=== PATIENT | male | born 1955 | race Caucasian/White ===

== ENCOUNTER 2019-02-14 01:15 | Emergency (ER) | payer MEDICARE, OTHER ==
[2019-02-14] MEDS ORDERED: FENTANYL CITRATE INJ/PF 100 MCG/2 ML AMPUL IV ONE (03:15)
[2019-02-14 04:05] LABS: ABSOLUTE BASOPHILS # (AUTO) 0.1 10^3/uL (0.0-0.2); ABSOLUTE EOSINOPHILS # (AUTO) 0.6 10^3/uL (0.0-0.6); ABSOLUTE LYMPHOCYTES (AUTO) 1.6 10^3/uL (0.5-4.7); ABSOLUTE MONOCYTES (AUTO) 1.6 10^3/uL (0.1-1.4); ABSOLUTE NEUT (AUTO) 11.6 10^3/uL (1.7-8.2); BASOPHILS % (AUTO) 0.3 % (0-2); HEMATOCRIT 49.1 % (37.9-51.0); HEMOGLOBIN 16.5 g/dL (13.5-17.0); LYMPHOCYTES % (AUTO) 10.4 % (13-45); MEAN CORPUSCULAR HEMOGLOBIN 31.2 pg (27.0-33.4); MEAN CORPUSCULAR HGB CONC 33.6 g/dL (32.0-36.0); MEAN CORPUSCULAR VOLUME 93 fl (80-97); MONOCYTES % (AUTO) 10.6 % (3-13); PLATELET COUNT 251 10^3/uL (150-450); RED BLOOD COUNT 5.28 10^6/uL (4.35-5.55); RED CELL DISTRIBUTION WIDTH 13.9 % (11.5-14.0); SEGMENTED NEUTROPHILS % (AUTO) 74.7 % (42-78); TOTAL CELLS COUNTED % (AUTO) 100 %; WHITE BLOOD COUNT 15.5 10^3/uL (4.0-10.5)
--- NOTE | 2019-02-14 04:16 | ER Document Report ---
ED GI/ - General Chief Complaint: Abdominal Pain Stated Complaint: ABDOMINAL PAIN Time Seen by Provider: 02/14/19 03:14 Primary Care Provider: RICHARD AUGUSTIN MD [ACTIVE STAFF] - Follow up as needed Notes: Patient is a 63-year-old male presents to the emergency department for right lower abdominal pain. Patient states a couple months ago he thought he may have pulled a muscle in his right back after playing golf. States he saw his primary care provider and was given Celebrex and Flexeril. States since then inte rmittently he has had right flank, right groin, right lower abdominal pain. States this evening it woke him up. States it was as though someone was squeezing his right lower abdomen. Patient also complains of pain in his right testicle. Patient voices he is very nauseated. Patient's denying any fevers, chest pain, shortness of breath, diarrhea. Patient voices he has no dysuria but has noted a decrease in the flow of his urine. States his primary care provider placed him on Flomax recently. Past medical history: Hypertension, hyperlipidemia Medications: Lisinopril Allergies: Penicillin, Cipro TRAVEL OUTSIDE OF THE [place] IN LAST 30 DAYS: No - Related Data Allergies/Adverse Reactions: ciprofloxacin [From Cipro] Allergy (Severe, Verified 07/24/15 13:17) ciprofloxacin HCl [From Cipro] Allergy (Severe, Verified 07/24/15 13:17) Penicillins Allergy (Severe, Verified 07/24/15 13:17) Past Medical History - General Information source: Patient - Social History Smoking Status: Former Smoker Frequency of alcohol use: Rare Drug Abuse: None Family History: Reviewed & Not Pertinent Patient has suicidal ideation: No Patient has homicidal ideation: No - Past Medical History Cardiac Medical History: Reports: Hx Hypercholesterolemia, Hx Hypertension GI Medical History: Reports: Hx Gastroesophageal Reflux Disease Past Surgical History: Reports: Hx Orthopedic Surgery, Hx Tonsillectomy - Immunizations Hx Diphtheria, Pertussis, Tetanus Vaccination: No Review of Systems - Review of Systems Constitutional: denies: Fever EENT: No symptoms reported Cardiovascular: No symptoms reported Respiratory: No symptoms reported Gastrointestinal: See HPI Genitourinary: See HPI Male Genitourinary: See HPI Musculoskeletal: See HPI Skin: No symptoms reported Hematologic/Lymphatic: No symptoms reported Neurological/Psychological: No symptoms reported Physical Exam - Vital signs Vitals: Temp Pulse Resp BP Pulse Ox 97.6 F 81 16 152/97 H 98 02/14/19 02:36 02/14/19 02:36 02/14/19 02:36 02/14/19 02:36 02/14/19 02:36 - Notes Notes: GENERAL: Alert, interacts well. No acute distress. HEAD: Normocephalic, atraumatic. EYES: Pupils equal, round, and reactive to light. Extraocular movements intact. ENT: Oral mucosa moist, tongue midline. NECK: Full range of motion. Supple. Trachea midline. LUNGS: Clear to auscultation bilaterally, no wheezes, rales, or rhonchi. No respiratory distress. HEART: Regular rate and rhythm. No murmur ABDOMEN: Soft, generalized tenderness noted right lower quadrant, otherwise abdominal exam benign. Non-distended. Bowel sounds present in all 4 quadrants. EXTREMITIES: Moves all 4 extremities spontaneously. No edema, normal radial and dorsalis pedis pulses bilaterally. No cyanosis. BACK: no cervical, thoracic, lumbar midline tenderness. No saddle anesthesia, normal distal neurovascular exam. No CVA tenderness noted bilaterally NEUROLOGICAL: Alert and oriented x3. Normal speech. cranial nerves II through XII grossly intact PSYCH: Normal affect, normal mood. SKIN: Warm, dry, normal turgor. No rashes or lesions noted. Genitalia: Kathia Oliveira RN, pain upon palpation and movement of right testicle, bilateral testicles nonerythematous, nonswollen. No pelvic pain noted bilaterally. Course - Re-evaluation Re-evalutation: 02/14/19 06:11 Laboratory 02/14/19 02/14/19 02/14/19 03:49 03:49 03:49 WBC 15.5 H RBC 5.28 Hgb 16.5 Hct 49.1 MCV 93 MCH 31.2 MCHC 33.6 RDW 13.9 Plt Count 251 Lymph % (Auto) 10.4 L [place] % (Auto) 10.6 Eos % (Auto) 4.0 Baso % (Auto) 0.3 Absolute Neuts (auto) 11.6 H Absolute Lymphs (auto) 1.6 Absolute Monos (auto) 1.6 H Absolute Eos (auto) 0.6 Absolute Basos (auto) 0.1 Seg Neutrophils % 74.7 Sodium 140.6 Potassium 4.2 Chloride 102 Carbon Dioxide 29 Anion Gap 10 BUN 31 H Creatinine 1.03 Est GFR ( Amer) > 60 Est GFR (MDRD) Non-Af > 60 Glucose 97 Calcium 9.6 Total Bilirubin 1.1 Direct Bilirubin 0.1 Neonat Total Bilirubin Not Reportable Neonat Direct Bilirubin Not Reportable Neonat Indirect Bili Not Reportable AST 31 ALT 35 Alkaline Phosphatase 91 Total Protein 7.4 Albumin 4.3 Lipase 79.6 Urine Color YELLOW Urine Appearance CLEAR Urine pH 6.0 Ur Specific [place] 1.027 Urine Protein 30 H Urine Glucose (UA) NEGATIVE Urine Ketones TRACE H Urine Blood NEGATIVE Urine Nitrite NEGATIVE Urine Bilirubin NEGATIVE Urine Urobilinogen NEGATIVE Ur Leukocyte Esterase NEGATIVE Urine WBC (Auto) 2 Urine RBC (Auto) 1 U Hyaline Cast (Auto) 3 Squamous Epi Cells Auto <1 Urine Mucus (Auto) FEW Urine Ascorbic Acid NEGATIVE Abdomen/Pelvis CT 02/14/19 03:14 IMPRESSION: No acute intra-abdominal/pelvic process TECHNICAL DOCUMENTATION: Quality ID # 436: Final reports with documentation of one or more dose reduction techniques (e.g., Automated exposure control, adjustment of the mA and/or kV according to patient size, use of iterative reconstruction technique) copyright 2011 [employer]- All Rights Reserved Scrotum Ultrasound 02/14/19 03:26 IMPRESSION: 1. There is an approximately 0.9 cm circumscribed hypoechoic avascular left extratesticular mass which could represent a spermatocele, adenomatoid tumor or other benign lesion. 2. Small bilateral epididymal head cysts. 3. No evidence of testicular torsion or intratesticular mass lesion. 4. Small bilateral hydroceles, larger on the right. I discussed with patient at length lab results. I have discussed continued fo llow-up with primary care provider for PSA testing. Patient voices understanding. I have discussed treatment for hydroceles and scrotal US, need to f/u with PCP/urology. Patient states the pain is right lower side is more so when he moves at this point time. Patient continues to deny the want for any pain medication. States he will take all medications that he was given for his muscle pull. Discussed potential diagnosis of constipation and use of MiraLAX. At this time will discharge with return precautions and follow-up recommendations. Verbal discharge instructions given a the bedside and opportunity for questions given. Medication warnings reviewed. Patient is in agreement with this plan and has verbalized understanding of return precautions and the need for primary care follow-up in the next 24-72 hours. This medical record was dictated with voice recognizing software. There may be grammatical, syntax errors that are unintended. - Vital Signs Vital signs: Temp Pulse Resp BP Pulse Ox 97.6 F 81 16 152/97 H 98 02/14/19 02:36 02/14/19 02:36 02/14/19 02:36 02/14/19 02:36 02/14/19 02:36 - Laboratory Result Diagrams: 02/14/19 03:49 02/14/19 03:49 Laboratory results interpreted by me: 02/14/19 02/14/19 02/14/19 03:49 03:49 03:49 WBC 15.5 H Lymph % (Auto) 10.4 L Absolute Neuts (auto) 11.6 H Absolute Monos (auto) 1.6 H BUN 31 H Urine Protein 30 H Urine Ketones TRACE H Discharge - Discharge Clinical Impression: Hydrocele Qualifiers: Hydrocele type: unspecified Qualified Code(s): N43.3 - Hydrocele, unspecified Abdominal pain Qualifiers: Abdominal location: right lower quadrant Qualified Code(s): R10.31 - Right lower quadrant pain Constipation Qualifiers: Constipation type: unspecified constipation type Qualified Code(s): K59.00 - Constipation, unspecified Condition: Stable Disposition: HOME, SELF-CARE Instructions: Abdominal Pain ([facility]), Hydrocele ([facility]), Constipation ([facility]) Additional Instructions: As we discussed you have been seen and treated in the emergency department for your right lower abdominal pain, right testicular pain your CT images shows you are constipated. You can take MiraLAX [id number] for constipation. Your ultrasound of your right testicle shows a hydrocele. You should wear supportive undergarments for supportive care. Please take all medications as prescribed. Please follow-up with your primary care provider for prostate testing. Please return to the emergency room for any concerns. Referrals: RICHARD AUGUSTIN MD [ACTIVE STAFF] - Follow up as needed
[2019-02-14 04:19] LABS: ALBUMIN 4.3 g/dL (3.5-5.0); ALKALINE PHOSPHATASE 91 U/L (38-126); ANION GAP 10 (5-19); ASPARTATE AMINO TRANSFERASE 31 U/L (17-59); BILIRUBIN,DIRECT 0.1 mg/dL (0.0-0.4); BILIRUBIN,TOTAL 1.1 mg/dL (0.2-1.3); BLOOD UREA NITROGEN 31 mg/dL (7-20); CALCIUM 9.6 mg/dL (8.4-10.2); CARBON DIOXIDE 29 mmol/L (22-30); CHLORIDE 102 mmol/L (98-107); GLUCOSE 97 mg/dL (75-110); POTASSIUM 4.2 mmol/L (3.6-5.0); TOTAL PROTEIN 7.4 g/dL (6.3-8.2)
[2019-02-14 04:22] LABS: APPEARANCE,URINE CLEAR; BILIRUBIN,URINE NEGATIVE (NEGATIVE); COLOR,URINE YELLOW; GLUCOSE, URINE NEGATIVE (NEGATIVE); KETONES,URINE TRACE mg/dL (NEGATIVE); LEUKOCYTE ESTERASE,URINE NEGATIVE (NEGATIVE); NITRITE,URINE NEGATIVE (NEGATIVE); PROTEIN,URINE 30 mg/dL (NEGATIVE); URINE SPECIFIC GRAVITY 1.027; UROBILINOGEN,URINE NEGATIVE mg/dL (<2.0)
[2019-02-14] MEDS ORDERED: NORMAL SALINE 1000 ML 1,000 ML IV ONE (05:23)
--- NOTE | 2019-02-14 05:34 | RADIOLOGY REPORT (SQ) ---
EXAM: US SCROTUM CLINICAL DATA: 63-year-old male with right testicular pain TECHNICAL DATA: Sagittal and transverse ultrasound imaging and measurement of bilateral testicles with color flow was performed. Comparison: None. FINDINGS: The right testicle measures 4.1 x 3.2 x 1.9 cm and is homogeneous in echogenicity. No focal masses are identified. The right epididymal head measures 1.2 x 1.0 x 0.9 cm. Doppler imaging demonstrates normal flow in the right testicle . There are a couple of small epididymal head cysts measuring approximately 0.3 and 0.4 cm in diameter. There is a small right hydrocele. The left testicle measures 3.7 x 2.9 x 1.9 cm and is homogeneous in echogenicity. The left epididymal head measures 0.9 x 0.8 x 0.8 cm. Doppler imaging demonstrates normal flow in the left testicle. There is an approximately 0.4 cm left epididymal head cyst. Additionally, there is an avascular hypoechoic mass adjacent to the left testicle which measures 0.9 x 0.9 x 0.9 cm. This is nonspecific. This could represent a spermatocele, adenomatoid tumor or other benign lesion. There is a trace left hydrocele. IMPRESSION: 1. There is an approximately 0.9 cm circumscribed hypoechoic avascular left extratesticular mass which could represent a spermatocele, adenomatoid tumor or other benign lesion. 2. Small bilateral epididymal head cysts. 3. No evidence of testicular torsion or intratesticular mass lesion. 4. Small bilateral hydroceles, larger on the right.
--- NOTE | 2019-02-14 05:37 | RADIOLOGY REPORT (SQ) ---
EXAM DESCRIPTION: CT ABDOMEN PELVIS WITH IV CONTRAST COMPLETED DATE/TME: 02/14/2019 03:14 CLINICAL HISTORY: 63 years, Male, RLQ pain. creat 1.03 COMPARISON: 03/19/2017 CT TECHNIQUE: [id number] Images stored on PACS. All CT scanners at this facility use dose modulation, iterative reconstruction, and/or weight based dosing when appropriate to reduce radiation dose to as low as reasonably achievable (ALARA). [facility]: Dose Right [facility]: CareDose [facility]: Dose Right [facility]: Teradose 4D [facility]: [employer] LIMITATIONS: None. FINDINGS: The lung bases are unremarkable. Osseous structures are grossly intact. The liver, spleen, adrenal glands, pancreas, kidneys are unremarkable. The gallbladder is present. No evidence for bowel obstruction. Normal appendix. Moderate stool in the colon. No free air or free fluid. Multiple calcifications of the prostate. Correlate with PSA levels IMPRESSION: No acute intra-abdominal/pelvic process TECHNICAL DOCUMENTATION: Quality ID # [id number]: Final reports with documentation of one or more dose reduction techniques (e.g., Automated exposure control, adjustment of the mA and/or kV according to patient size, use of iterative reconstruction technique) copyright 2010 [employer]- All Rights Reserved
[2019-02-14 06:22] VITALS: BP 143/84
== END 2019-02-14 06:31 | disposition home or self-care (01) ==
LOC: ER 01:15
DX: N43.3 Hydrocele, unspecified (principal); K59.00 Constipation, unspecified; R10.9 Unspecified abdominal pain; R10.31 Right lower quadrant pain; N50.811 Right testicular pain; R33.9 Retention of urine, unspecified; I10 Essential (primary) hypertension; Z79.899 Other long term (current) drug therapy; Z87.891 Personal history of nicotine dependence
CPT/HCPCS: 36415; 74177; 76870; 80053; 81001; 83690; 85025; 87086; 93976; 99284